=== PATIENT | female | born 1990 | race African-American/Black ===

== ENCOUNTER 2024-06-17 18:24 | Emergency (ER) | payer OTHER ==
[~2024-06-17] VITALS: Ht 162.6 cm; Wt 129.9 kg
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
[2024-06-17 19:19] VITALS: BP 152/77; PULSE 92; RESP 16; TEMP 97.8; O2SAT 96
[2024-06-17] MEDS: KETOROLAC TROMETH 60MG/2ML VIAL IM ONE (19:30)
[2024-06-17] MEDS: HYDROcodone-ACET 5/325MG TAB PO ONE (20:20)
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
[2024-06-17] MEDS ORDERED: METH4PAK PO (20:49)
[2024-06-17] MEDS ORDERED: TIZA-142 PO (20:49)
--- NOTE | 2024-06-18 08:17 | ECG ---
[facility] Test Date: 2024-06-17 Test Time: 18:56:56 Pat Name: MAIN CLEANING Department: ER Room: Gender: F Application Development Consultant: dr NUNEZ: 1990 Requested By: ROHITH FERREIRA Order Number: [id number] Reading MD: Sterling Stern Measurements Intervals [place] Rate: 95 P: 11 ID: [id number] QRS: 45 QRSD: 80 T: 28 QT: 353 QTc: 444 Interpretive Statements Sinus rhythm ST elev, probable normal early repol pattern Electronically Signed On 06-18-2024 8:29:12 PST by Sterling Stern Please click the below link to view image of tracing.
== END 2024-06-17 20:59 | disposition home or self-care (01) ==
LOC: ER 18:24
DX: S13.4XXA Sprain of ligaments of cervical spine, initial encounter (principal); S33.5XXA Sprain of ligaments of lumbar spine, initial encounter; V49.40XA Driver injured in collision with unspecified motor vehicles in traffic accident, initial encounter; Y93.89 Activity, other specified; Y92.89 Other specified places as the place of occurrence of the external cause; Y99.8 Other external cause status
CPT/HCPCS: 72040; 72100; 93005; J1885